=== PATIENT | female | born 1990 | race Caucasian/White ===

== ENCOUNTER 2017-04-23 20:39 | Emergency (ER) | payer MEDICAID, OTHER ==
--- NOTE | 2017-04-23 20:48 | EDPHY ---
H & P HPI/ROS: HPI CHIEF COMPLAINT: Fever, sore throat HISTORY OF PRESENT ILLNESS: This patient otherwise healthy 26-year-old female, no significant medical history, does not take any daily medications, is allergic to amoxicillin and codeine, presents to the emergency room with sore throat times 12 hours. Fever to 100.8. Been taking ibuprofen. Denies chest pain or shortness of breath denies productive cough, denies headache, denies neck pain or stiff neck. Main complaint is sore throat and fever. Past Medical History: No recent significant medical history Past Surgical History: No significant surgical history Social History: Denies daily use of drugs alcohol tobacco products, mom at bedside Family History: Noncontributory ROS REVIEW OF SYSTEMS: A comprehensive 10 point review of systems is otherwise negative aside from elements mentioned in the history of present illness. Exam Constitutional appears well nontoxic, triage nursing summary reviewed, vital signs reviewed, awake/alert. Eyes normal conjunctivae and sclera, EOMI, PERRLA. HENT posterior pharynx uvula is midline, no signs of Remi's, erythematous tonsillar bed, no significant exudate, 2+ tonsils bilaterally symmetrically, no change in phonation, not drooling, able to handle secretions appropriately, moist mucus membranes, no epistaxis, neck supple/ no meningismus, no raccoon eyes. Respiratory clear to auscultation bilaterally, normal breath sounds, no respiratory distress, no wheezing. Cardiovascular rate normal, regular rhythm, no murmur, no edema, distal pulses normal. Gastrointestinal soft, non-tender, no rebound, no guarding, normal bowel sounds, no distension, no pulsatile mass. Genitourinary no CVA tenderness. Musculoskeletal no midline vertebral tenderness, full range of motion, no calf swelling, no tenderness of extremities, no meningismus, good pulses, neurovascularly intact. Skin pink, warm, & dry, no rash, skin atraumatic. Neurologic awake, alert and oriented x 3, AAOx3, moves all 4 extremities equally, motor intact, sensory intact, CN II-XII intact, normal cerebellar, normal vision, normal speech. Psychiatric normal mood/affect. Heme/Lymph/Immune no lymphadenopathy. Differential Diagnosis: Includes but is not limited to in a particular, viral pharyngitis, strep pharyngitis, mono, doubt RPA or [employer]. Medical Decision Making: Plan for this patient rapid strep, Tylenol here for fever. P.o. challenge with fluids. Start azithromycin. Re-evaluation: Clinically this patient most likely has strep pharyngitis. Will give Tylenol here for fever control. 1st dose of azithromycin given here. She is encouraged to drink lots of fluids stay well-hydrated. And understands that she should return emergency room if she develops any worsening symptoms includes worsening fever, worsening sore throat, unable swallow, not feeling well. She understands. Source: Patient - Medical/Surgical History Other PMH: Denies surgery - Social History Smoking Status: Never smoked Allergies/Adverse Reactions: codeine [Codeine] Allergy (Intermediate, Verified 04/23/17 20:50) rash,nausea amoxicillin [Amoxicillin] Allergy (Mild, Verified 04/23/17 20:50) Rash Home Medications: Medication Instructions Recorded AZITHROMYCIN [Z-PACK] 250 mg PO DAILY #6 tab 04/23/17 Control Pill 04/23/17 Dexamethasone [Decadron 4 MG (*)] 4 mg PO DAILY #4 tab 04/23/17 Ibuprofen [Motrin (*)] 800 mg PO Q6-8PRN #10 tab 04/23/17 Medical Decision Making - Data Points Laboratory Results: 04/23/17 20:45 Group A Strep Screen Pending Departure - Departure Disposition: Home, Routine, Self-Care Clinical Impression: Strep pharyngitis Condition: Good Instructions: Strep Throat (ED), Pharyngitis (ED) Additional Instructions: 1.Drink lots of fluids stay well-hydrated. 2. Keep her fever down with Tylenol Motrin you can alternate these every 4-6 hours. 3. Take antibiotic as prescribed 4. Return emergency room if develops worsening symptoms includes high fever, vomiting severe sore throat. Referrals: Jazmin Murphy MD [Primary Care Provider] - As per Instructions Prescriptions: AZITHROMYCIN [Z-PACK] 250 mg PO DAILY #6 tab Dexamethasone [Decadron 4 MG (*)] 4 mg PO DAILY #4 tab Ibuprofen [Motrin (*)] 800 mg PO Q6-8PRN #10 tab
[2017-04-23] MEDS ORDERED: ACETAMINOPHEN 325 MG TAB PO ONE (20:50)
[2017-04-23] MEDS ORDERED: AZITHROMYCIN 250 MG TAB PO ONE (20:50)
[2017-04-23 20:53] VITALS: RESP 20
[2017-04-23 21:08] VITALS: BP 115/72; PULSE 102; TEMP 99; O2SAT 94
== END 2017-04-23 21:08 | disposition home or self-care (01) ==
LOC: CED 20:39
DX: J02.0 Streptococcal pharyngitis (principal)
CPT/HCPCS: 87880-PO